=== PATIENT | male | born 1955 | race Caucasian/White ===

== ENCOUNTER → 2016-12-31 | Outpatient (CLI) | payer OTHER ==
[~2016-12-31] MED LIST: ASPI325T39 PO; CHOLCAP5 PO; CLOP1TAB15 PO; COEN400C5 PO; CYAN10005 PO; FENO160T PO; HMLNPUC SQ; INSU100I SQ; LEVO125T4 PO; LIDO1SOL9 PO; LISI-729 PO; METF-384 PO; METO25TA56 PO; NTRGSL/4 UT; PRED50TA PO; SIMV20TA2 PO
[2017-01-01 07:33] LABS: ESTIMATED AVERAGE GLUCOSE 157 mg/dl; HA1C FLAG Normal (Normal)
== END | disposition home or self-care (01) ==
LOC: C.LAB1850 14:19
PROVIDERS: ATTEND Internal Medicine Endocrinology, Diabetes & Metabolism
DX: E11.9 Type 2 diabetes mellitus without complications (principal)

== ENCOUNTER 2017-01-04 03:57 | Emergency (ER) | payer OTHER ==
[~2017-01-04] VITALS: Ht 177.8 cm; Wt 95.4 kg
[2017-01-04 04:02] VITALS: Ht 177.8 cm; Wt 95.4 kg
[2017-01-04] MEDS ORDERED: SODIUM CHLORIDE 0.9% 500ML 500 ML IV STA (04:12)
[2017-01-04] MEDS ORDERED: SODIUM CHLORIDE 0.9% 1000ML 1,000 ML IV STA (04:12)
[2017-01-04] MEDS ORDERED: DEXAMETHASONE SOD INJ 10 MG/ML VIAL IV ONE (04:15)
[2017-01-04 04:41] LABS: BASO % 0.2 %; BASO ABS # 0.02 K/uL (0-0.2); COMPLETE YES; EOS % 0.2 %; HEMATOCRIT 46.6 % (42-52); IG% 0.3 %; LYMPH % 7.6 %; LYMPH ABS # 0.93 K/uL (1.2-3.4); MEAN CELL VOLUME 91.7 fL (80-100); MEAN CORPUSCULAR HEMOGLOBIN 31.7 pg (25-34); MEAN CORPUSCULAR HGB CONC 34.5 g/dl (32-36); MEAN PLATELET VOLUME 10.1 fL (7.4-10.4); NEUT % 79.7 %; PLATELET COUNT 274 K/uL (130-400); RED BLOOD COUNT 5.08 M/uL (4.7-6.1); WHITE BLOOD COUNT 12.28 K/uL (4.8-10.8)
[2017-01-04 04:46] VITALS: O2SAT 92
[2017-01-04 04:58] LABS: BUN/CREATININE RATIO 14.4 (10-20); CALCIUM 9.1 mg/dl (8.5-10.1); CREATININE 1.2 mg/dl (0.60-1.40)
[2017-01-04] MEDS ORDERED: OPTIRAY 320 IV PRN (05:00)
[2017-01-04 05:01] LABS: PARTIAL THROMBOPLASTIN RATIO 1.1; PROTHROMBIN TIME (PATIENT) 11.1 SECONDS (9.0-12.0)
[2017-01-04] MEDS ORDERED: FENO160T PO (05:09)
[2017-01-04] MEDS ORDERED: COEN400C5 PO (05:10)
[2017-01-04] MEDS ORDERED: METO25TA56 PO (05:11)
[2017-01-04] MEDS ORDERED: LISI-729 PO (05:13)
[2017-01-04] MEDS ORDERED: ASPI325T39 PO (05:14)
[2017-01-04] MEDS ORDERED: CLOP1TAB15 PO (05:14)
[2017-01-04] MEDS ORDERED: LEVO125T4 PO (05:16)
[2017-01-04] MEDS ORDERED: METF-384 PO (05:17)
[2017-01-04] MEDS ORDERED: CYAN10005 PO (05:18)
[2017-01-04] MEDS ORDERED: CHOLCAP5 PO (05:20)
[2017-01-04] MEDS ORDERED: SIMV20TA2 PO (05:20)
[2017-01-04] MEDS ORDERED: HMLNPUC SQ ×2 (05:22→05:23)
[2017-01-04] MEDS ORDERED: INSU100I SQ (05:26)
[2017-01-04] MEDS ORDERED: NTRGSL/4 UT (05:28)
[2017-01-04] MEDS ORDERED: LIDOCAINE HCL 2% VISC SOLN 20 ML UDC MT STA (06:04)
--- NOTE | 2017-01-04 06:04 | EMERGENCY ROOM VISIT NOTE ---
History First contact with patient: 04:05 Chief Complaint: FLU LIKE SX Stated Complaint: HEADACHE,SORETHROAT,CHILLS,FEVER History of Present Illness The patient is a 61 year old male who presents to the Emergency Room with complaints of cough, congestion, severe sore throat, dysphagia, fever and chills with headache for the past few days that is steadily getting worse. No temperature was taken. Patient tried multiple iiuz-xpl-juxghzw cold medications with no improvement of symptoms. He has severe pain with swallowing. Patient denies neck stiffness, chest pain, dyspnea, abdominal pain , vomiting, diarrhea. Review of Systems See HPI for pertinent positives & negatives. A total of 10 systems reviewed and were otherwise negative. Past Medical/Surgical History Diabetes, coronary artery disease, stent, hyperlipidemia Social History Smoking Status: Never Smoker Current/Historical Medications Scheduled Aspirin (Aspirin Ec), 325 MG PO DAILY Cholecalciferol (Vitamin D3), 5,000 UNITS PO DAILY Clopidogrel (Plavix), 75 MG PO DAILY Coenzyme Q10 (Ubidecarenone) (Coq10), 400 MG PO DAILY Cyanocobalamin (Vitamin B-12), 2,500 MCG PO DAILY Fenofibrate (Tricor), 160 MG PO DAILY Insulin Human NPH (Humulin N), 60 UNITS SQ QAM Insulin Human NPH (Humulin N), 18 UNITS SQ QAFTERNOON Insulin Lispro (Human) (Humalog), SQ AC Levothyroxine Sodium (Levothyroxine Sodium), 125 MCG PO DAILY Lisinopril (Zestril), 5 MG PO DAILY Metformin Hcl (Glucophage), 1,000 MG PO BID Metoprolol Tartrate (Lopressor) (Lopressor), 25 MG PO BID Nitroglycerin (Nitrostat), 0.4 MG UT PRN Simvastatin (Zocor), 20 MG PO QPM Allergies Coded Allergies: No Known Allergies (Verified Allergy, Mild, 08/19/06) Physical Exam Vital Signs Date Time Temp Pulse Resp B/P Pulse Ox O2 Delivery O2 Flow Rate FiO2 01/04/17 05:27 90 20 165/88 91 Room Air 01/04/17 04:46 92 Room Air 01/04/17 04:02 37.7 101 20 148/88 93 Room Air Physical Exam VITALS: Vitals are noted on the nurse's note and reviewed by myself. Vital signs febrile. GENERAL: Pleasant male with a hoarse voice, in no acute distress, nondiaphoretic , well-developed well-nourished. SKIN: The skin was without rashes, erythema, edema, or bruising. There is no tenting of the skin. Capillary reflex less than 2 seconds. HEAD: Normocephalic atraumatic. EARS: External auditory canals clear, tympanic membranes pearly rankin without erythema or effusion bilaterally. EYES: Pupils equal round and reactive to light and accommodation. Conjunctivae without injection, sclerae without icterus. Extraocular movements intact. NOSE: Patent, turbinates without inflammation or discharge. No sinus tenderness. MOUTH: Mucous membranes moist. Tonsils are enlarged. Pharynx with erythema without exudate. Uvula midline. Airway patent. Tongue does not deviate. NECK: Supple without nuchal rigidity. No lymphadenopathy. No thyromegaly. Cervical spine is nontender. No JVD. No meningeal signs HEART: Regular rate and rhythm without murmurs gallops or rubs. LUNGS: Clear to auscultation bilaterally without wheezes, rales or rhonchi. No dullness to percussion. No retractions or accessory muscle use. ABDOMEN: Positive bowel sounds x 4. Normal tympanic percussion. Soft, nontender, without masses or organomegaly. Rogers sign negative. No guarding or rebound tenderness. MUSCULOSKELETAL: No muscle atrophy, erythema, or edema noted. NEURO: Patient was alert and oriented to person place and time. Normal sensation to light and sharp touch. No focal neurological deficits. Medical Decision & Procedures Laboratory Results 01/04/17 04:30 Red Blood Count 5.08, Mean Corpuscular Volume 91.7, Mean Corpuscular Hemoglobin 31.7, Mean Corpuscular Hemoglobin Concent 34.5, Mean Platelet Volume 10.1, Neutrophils (%) (Auto) 79.7, Lymphocytes (%) (Auto) 7.6, Monocytes (%) (Auto) 12.0, Eosinophils (%) (Auto) 0.2, Basophils (%) (Auto) 0.2, Neutrophils # (Auto ) 9.79, Lymphocytes # (Auto) 0.93, Monocytes # (Auto) 1.47, Eosinophils # (Auto ) 0.03, Basophils # (Auto) 0.02 01/04/17 04:30 Test 01/04/17 04:15 01/04/17 04:30 01/04/17 04:31 Influenza Type A Antigen Neg for Influ A (NEG) Influenza Type B Antigen Neg for Influ B (NEG) White Blood Count 12.28 K/uL (4.8-10.8) Red Blood Count 5.08 M/uL (4.7-6.1) Hemoglobin 16.1 g/dL (14.0-18.0) Hematocrit 46.6 % (42-52) Mean Corpuscular Volume 91.7 fL (80-100) Mean Corpuscular Hemoglobin 31.7 pg (25-34) Mean Corpuscular Hemoglobin Concent 34.5 g/dl (32-36) Platelet Count 274 K/uL (130-400) Mean Platelet Volume 10.1 fL (7.4-10.4) Neutrophils (%) (Auto) 79.7 % Lymphocytes (%) (Auto) 7.6 % Monocytes (%) (Auto) 12.0 % Eosinophils (%) (Auto) 0.2 % Basophils (%) (Auto) 0.2 % Neutrophils # (Auto) 9.79 K/uL (1.4-6.5) Lymphocytes # (Auto) 0.93 K/uL (1.2-3.4) Monocytes # (Auto) 1.47 K/uL (0.11-0.59) Eosinophils # (Auto) 0.03 K/uL (0-0.5) Basophils # (Auto) 0.02 K/uL (0-0.2) RDW Standard Deviation 46.5 fL (36.4-46.3) RDW Coefficient of Variation 13.8 % (11.5-14.5) Immature Granulocyte % (Auto) 0.3 % Immature Granulocyte # (Auto) 0.04 K/uL (0.00-0.02) Prothrombin Time 11.1 SECONDS (9.0-12.0) Prothromb Time International Ratio 1.0 (0.9-1.1) Activated Partial Thromboplast Time 27.3 SECONDS (21.0-31.0) Partial Thromboplastin Ratio 1.1 Anion Gap 11.0 mmol/L (3-11) Est Creatinine Clear Calc Drug Dose 74.0 ml/min Estimated GFR () 74.7 Estimated GFR (Non- 64.4 BUN/Creatinine Ratio 14.4 (10-20) Calcium Level 9.1 mg/dl (8.5-10.1) Total Bilirubin 0.4 mg/dl (0.2-1) Aspartate Amino Transf (AST/SGOT) 21 U/L (15-37) Alanine Aminotransferase (ALT/SGPT) 36 U/L (12-78) Alkaline Phosphatase 79 U/L (45-117) Total Protein 8.1 gm/dl (6.4-8.2) Albumin 4.1 gm/dl (3.4-5.0) Globulin 4.0 gm/dl (2.5-4.0) Albumin/Globulin Ratio 1.0 (0.9-2) Bedside Lactic Acid Venous 1.25 mmol/L (0.90-1.70) Medications Administered Medications (Trade) Dose Ordered Sig/Deborah Route Start Time Stop Time Status Last Admin Dose Admin Sodium Chloride (Nss 1000ml) 1,000 ml @ 125 mls/hr Q8H STAT IV 01/04/17 04:12 01/04/17 12:11 01/04/17 04:34 125 MLS/HR Dexamethasone Sodium Phosphate 10 mg 10 mg NOW ONCE IV 01/04/17 04:15 01/04/17 04:16 DC 01/04/17 04:42 10 MG Sodium Chloride (Nss 500ml) 500 ml @ 999 mls/hr Q31M STAT IV 01/04/17 04:12 01/04/17 04:42 DC 01/04/17 04:34 999 MLS/HR ED Course Prior records/ancillary studies reviewed. Triage Nursing notes reviewed. Additional history obtained from family. The patient's history was concerning for a sore throat. Differential diagnosis: Etiologies such as viral syndrome, epiglottitis, tonsillitis, streptococcal pharyngitis, mononucleosis, peritonsillar abscess, retropharyngeal abscess, otitis, pneumonia, influenza, as well as others were entertained. ER treatment provided: Decadron, IV fluids On reassessment the patient felt better. Diagnostics interpreted by me: The labs revealed mild leukocytosis. Negative lactic acid Imaging studies: Chest x-ray with no acute consolidation, pneumothorax or free air per my interpretation. Neck x-ray with no thumbprint sign or airway narrowing per my interpretation CT NECK: Evaluation is slightly limited by streak artifact from dental fillings. Prominence of oropharyngeal mucosa, suggesting possible pharyngitis. There is airway narrowing, but this could also be related to patient positioning during scanning, rather than true narrowing. Correlate with examination. No fluid collections. No abnormal mass lesions. Scattered lymph nodes measuring up to 1.1 cm in short axis at right level II and 1.0 cm in short axis at left level III. Sinuses and lung apices are clear. Multilevel degenerative changes of the spine. Radiologist: Deven Rodrigez MD This appears to be consistent with tonsillitis. Patient had negative strep test. He was started on steroids. No abscess or epiglottitis on CT imaging. He was advised to rest, stay well-hydrated and to take medicines as directed. He is advised follow-up family care in a few days or here in the ER sooner for high fevers, lethargy, neck stiffness, worsening signs or symptoms or as needed. Patient had no signs of meningitis or airway compromise. He is well- appearing. By the evaluation outlined above emergent etiologies such as peritonsillar abscess, retropharyngeal abscess, otitis, pneumonia, meningitis, urinary tract infection, sepsis, bacteremia, as well as others were deemed relatively unlikely. The pt informed about the findings as listed above. All questions were answered and pleased with the treatment. Return instructions were outlined and the patient was discharged in stable condition. Outpatient prescription management: Prednisone Referral: The patient was referred back to their primary care physician for follow-up in 2 to 3 days for a recheck of the current condition. Case reviewed with my attending. Medical Decision As above Impression Primary Impression: Acute tonsillitis Departure Information Dispostion Home / Self-Care Condition GOOD Referrals Clint Booth M.D. (PCP) Patient Instructions My [facility] Additional Instructions Prednisone 50 m tablet daily for the next 4 days. Start Saturday morning. Acetaminophen(Tylenol) may be used for fever or pain. Use 1000mg every six hours as needed. Avoid using more than 3000mg in a 24 hour period. (AND/OR) Ibuprofen(Motrin, Advil) may be used for fever or pain. Use 600mg every six hours as needed. Take with food. Avoid using more than 2400mg in a 24 hour period. Do not use 2400mg per day for more than three consecutive days without physician direction. Prolonged inappropriate use can lead to stomach upset or ulcers. Afrin nasal spray: 2-3 sprays to each nostril twice daily as needed for congestion. Do not use for more than 3-4 days because it can lead to worsening rebound congestion. Pseudoephedrine(Sudaphed): 30-60mg every 6 hours as needed for nasal congestion. Do not take this with other stimulant products or supplements. Rest and drink plenty of fluids. Controlling your fever with Tylenol and Ibuprofen as above will make you feel better. Wash your hands after nose blowing, sneezing, or coughing. Most germs are spread through contact, therefore improper hygiene may result in your close contacts and loved ones becoming ill just like you. Continue current medications. Return to the ER for severe headache, neck stiffness, chest pain, difficulty breathing, fevers, vomiting, worsening of your condition, or as needed. Follow up with your primary physician this week for a recheck of your current condition.
[2017-01-04] MEDS ORDERED: PRED50TA PO (06:06)
[2017-01-04] MEDS ORDERED: LIDO1SOL9 PO (06:14)
[2017-01-04 06:30] VITALS: BP 131/78; PULSE 93; TEMP 37.1; O2SAT 92
[2017-01-04 06:42] LABS: INFLUENZA A PCR Neg for Influ A (NEG); INFLUENZA B PCR Neg for Influ B (NEG)
--- NOTE | 2017-01-04 06:50 | DIAGNOSTIC IMAGING REPORT ---
SOFT TISSUE NECK TECHNIQUE: AP and lateral soft tissue neck FINDINGS: Normal prevertebral soft tissues. No distention of the hypopharynx. The epiglottis is normal. IMPRESSION: Normal study. Electronically signed by: Jonny Jaffe M.D. 01/04/2017 6:49 AM Dictated Date/Time: 01/04/2017 6:49 AM
--- NOTE | 2017-01-04 06:51 | DIAGNOSTIC IMAGING REPORT ---
CHEST 2 VIEWS ROUTINE CLINICAL HISTORY: cough/fever COMPARISON STUDY: No previous studies for comparison. FINDINGS: The bones soft tissues and hemidiaphragms are normal. The cardiomediastinal silhouette is normal. The lungs are clear. The pulmonary vasculature is normal. IMPRESSION: Negative chest. Electronically signed by: Jonny Jaffe M.D. 01/04/2017 6:49 AM Dictated Date/Time: 01/04/2017 6:49 AM
--- NOTE | 2017-01-04 06:52 | DIAGNOSTIC IMAGING REPORT ---
CT soft tissue neck SOFT TISSUE NECK WITH CLINICAL HISTORY: severe dysphagia with fever dysphagia TECHNIQUE: Transaxial acquisition with multi axial reformatted images COMPARISON STUDY: None FINDINGS: Mild cervical adenopathy bilaterally. Nodes measure up to 11 mm in the cervical chains bilaterally. Mild edematous change of the hypopharynx. Glottic and subglottic regions are unremarkable. Thyroid appears symmetric. IMPRESSION: 1. Mild/moderate hypopharyngeal edema. 2. Moderate cervical adenopathy bilaterally. Electronically signed by: Jonny Jaffe M.D. 01/04/2017 6:51 AM Dictated Date/Time: 01/04/2017 6:50 AM
== END 2017-01-04 06:30 | disposition home or self-care (01) ==
LOC: C.EDB 03:59 → C.EDA 06:30
DX: J03.90 Acute tonsillitis, unspecified (principal); E11.9 Type 2 diabetes mellitus without complications; I25.10 Atherosclerotic heart disease of native coronary artery without angina pectoris; E78.5 Hyperlipidemia, unspecified; Z95.5 Presence of coronary angioplasty implant and graft; Z79.82 Long term (current) use of aspirin; Z79.4 Long term (current) use of insulin

== ENCOUNTER → 2017-01-07 | Outpatient (CLI) | payer OTHER ==
[2017-01-07 18:23] LABS: ALT/SGPT 44 U/L (12-78); AST/SGOT 23 U/L (15-37); BLOOD UREA NITROGEN 23 mg/dl (7-18); BUN/CREATININE RATIO 21.2 (10-20); CALCIUM 9.2 mg/dl (8.5-10.1); CARBON DIOXIDE 28 mmol/L (21-32); CHLORIDE 100 mmol/L (98-107); GLUCOSE 256 mg/dl (70-99); POTASSIUM 3.9 mmol/L (3.5-5.1); SODIUM 136 mmol/L (136-145)
[2017-01-07 18:28] LABS: RATIO 27.2 mcg/mg (0-30.0)
[2017-01-07 18:39] LABS: ALKALINE PHOSPHATASE 79 U/L (45-117); CHOLESTEROL 148 mg/dl (0-200); CHOLESTEROL/HDL RATIO 3.3; HDL CHOLESTEROL 45 mg/dl; LDL CHOLESTEROL CALCULATED 75 mg/dl; THYROID STIMULATING HORMONE 0.519 uIu/ml (0.300-4.500); TRIGLYCERIDES 142 mg/dl (0-150); VERY LOW DENSITY LIPOPROT CALC 28 mg/dl
[2017-01-08 06:12] LABS: ESTIMATED AVERAGE GLUCOSE 163 mg/dl; HA1C FLAG Normal (Normal)
== END | disposition home or self-care (01) ==
LOC: C.LAB1850 16:33
PROVIDERS: ATTEND Internal Medicine
DX: I25.10 Atherosclerotic heart disease of native coronary artery without angina pectoris (principal); E55.9 Vitamin D deficiency, unspecified; E11.9 Type 2 diabetes mellitus without complications; Z79.84 Long term (current) use of oral hypoglycemic drugs

== ENCOUNTER → 2017-02-15 | Outpatient (CLI) | payer OTHER ==
[~2017-02-15] MED LIST changes: -LEVO125T4 PO; +LEVO125T5 PO; -PRED50TA PO
[2017-02-15 16:02] LABS: THYROID STIMULATING HORMONE 0.819 uIu/ml (0.300-4.500)
[2017-02-21 13:39] LABS: T4 FREE BY EQU DIAL 2.1 ng/dL (0.8-2.7)
== END | disposition home or self-care (01) ==
LOC: C.LAB1850 14:18
PROVIDERS: ATTEND Physician Assistant
DX: Z12.5 Encounter for screening for malignant neoplasm of prostate (principal); E03.9 Hypothyroidism, unspecified; E06.3 Autoimmune thyroiditis

== ENCOUNTER → 2017-04-08 | Outpatient (CLI) | payer OTHER ==
[2017-04-09 06:44] LABS: ESTIMATED AVERAGE GLUCOSE 171 mg/dl; HA1C FLAG Normal (Normal)
== END | disposition home or self-care (01) ==
LOC: C.LAB1850 15:14
PROVIDERS: ATTEND Internal Medicine Endocrinology, Diabetes & Metabolism
DX: E78.5 Hyperlipidemia, unspecified (principal); E11.9 Type 2 diabetes mellitus without complications

== ENCOUNTER → 2017-09-04 | Outpatient (CLI) | payer OTHER ==
[2017-09-04 09:51] LABS: ESTIMATED AVERAGE GLUCOSE 197 mg/dl; HA1C FLAG Normal (Normal)
== END | disposition home or self-care (01) ==
LOC: C.LAB1850 07:45
PROVIDERS: ATTEND Internal Medicine Endocrinology, Diabetes & Metabolism
DX: E11.9 Type 2 diabetes mellitus without complications (principal); E78.5 Hyperlipidemia, unspecified

== ENCOUNTER → 2017-09-23 | Outpatient (CLI) | payer OTHER ==
[2017-09-23 12:25] LABS: ALT/SGPT 39 U/L (12-78); BLOOD UREA NITROGEN 19 mg/dl (7-18); BUN/CREATININE RATIO 17.3 (10-20); CALCIUM 9.4 mg/dl (8.5-10.1); CARBON DIOXIDE 25 mmol/L (21-32); CHLORIDE 102 mmol/L (98-107); CREATININE 1.12 mg/dl (0.60-1.40); GLUCOSE 152 mg/dl (70-99); POTASSIUM 4.3 mmol/L (3.5-5.1); SODIUM 135 mmol/L (136-145)
[2017-09-23 12:28] LABS: ALKALINE PHOSPHATASE 72 U/L (45-117); AST/SGOT 28 U/L (15-37)
== END | disposition home or self-care (01) ==
LOC: C.LABBFT 09:19
PROVIDERS: ATTEND Internal Medicine
DX: E78.5 Hyperlipidemia, unspecified (principal)

== ENCOUNTER → 2018-05-26 | Day surgery (SDC) | payer BC, OTHER ==
[2018-05-14 08:21] VITALS: Ht 175.3 cm; Wt 97.7 kg
[~2018-05-26] VITALS: Ht 175.3 cm; Wt 97.7 kg
[~2018-05-26] MED LIST changes: +ATOR-24 PO; +CHOL20007 PO; -CHOLCAP5 PO; +HMLI7525 SC; +INSU100I SC; -INSU100I SQ; -LIDO1SOL9 PO; +LIDOCAINE HCL 2% 2 ML VIAL (20MG/ML) ONE; +MISCCAP80 PEG; +MISCCAP80 PO; +PROPOFOL IV EMULSION 10 MG/ML 20 ML VIAL ONE; +SENNTAB23 PO; -SIMV20TA2 PO; +SODIUM CHLORIDE 0.9% 500ML 500 ML IV ONE
--- NOTE | 2018-05-26 08:31 | Endo History and Physical ---
History & Physical Date of Service: May 26, 2018. Chief Complaint: Screening Referring Physician: Clint Booth History of Present Illness 62 yo CM who presents for screening colonoscopy. Past Surgical History Hx Cardiac Surgery: Yes (CARDIAC CATH 1 STENT) Hx Internal Defibrillator: No Hx Pacemaker: No Hx Abdominal Surgery: No Hx of Implantable Prosthesis: No Hx Post-Op Nausea and Vomiting: No Hx Cancer Surgery: No Hx Thoracic Surgery: No Hx Orthopedic: No Hx Urinary Tract Surgery: No Family History None Social History Smoking Status: Never Smoker Hx Substance Use: No Hx Alcohol Use: Yes (OCC BEER 1 A WEEK) Allergies Coded Allergies: No Known Allergies (Verified , 05/14/18) Current Medications Reported Home Medications Medications Dose Route/Sig Max Daily Dose Days Date Category Dose Instructions Humalog Mix 75/25 (Insulin Human Lispro) 100 Units/ Inj 30 SC QPM 05/14/18 Reported Lipitor (Atorvastatin Calcium) 40 Mg Tab 40 Mg PO HS 05/14/18 Reported Stool Softener (Sennosides-Docusate Sodium) 1 Tab Tab 2 Tab PO DAILY 05/14/18 Reported Vitamin D3 (Cholecalciferol) 2,000 Unit Tab 1 Tab PO DAILY 90 05/14/18 Reported Nitrostat (Nitroglycerin) 0.4 Mg Tab 0.4 Mg UT PRN 01/04/17 Reported NEEDED FOR CHEST PAIN, ONE TABLET UNDER THE TONGUE EVERY 5 MINUTES, UP TO 3 DOSES. Humalog (Insulin Lispro (Human)) 100 Unit/Ml Inj 12-15 Units SC NOON 01/04/17 Reported PER SLIDING SCALE WITH LUNCH Humulin N (Insulin Human NPH) 1,000 Units/10 Ml Inj 60 Units SQ QAM 01/04/17 Reported Vitamin B-12 (Cyanocobalamin) 1,000 Mcg Tab 5,000 Mcg PO DAILY 01/04/17 Reported Glucophage (Metformin Hcl) 1,000 Mg Tab 1,000 Mg PO BID 01/04/17 Reported Levothyroxine Sodium 125 Mcg Tab 125 Mcg PO QAM 01/04/17 Reported 6X A WEEK Plavix (Clopidogrel Bisulfate) 75 Mg Tab 75 Mg PO DAILY 01/04/17 Reported PT WILL CHECK WITH PCP Aspirin Ec (Aspirin) 325 Mg Tab 325 Mg PO QAM 01/04/17 Reported PT WILL CHECK WITH PCP Zestril (Lisinopril) 5 Mg Tab 5 Mg PO DAILY 01/04/17 Reported Lopressor (Metoprolol Tartrate) 25 Mg Tab 25 Mg PO BID 01/04/17 Reported Coq10 (Coenzyme Q10 (Ubidecarenone)) 400 Mg Cap 400 Mg PO DAILY 01/04/17 Reported TAKE DAILY WITH A MEAL. Tricor (Fenofibrate) 160 Mg Tab 160 Mg PO DAILY 01/04/17 Reported Probiotic (Probiotic Product) 1 Cap Cap 1 Cap PO DAILY 05/26/18 Reported Vital Signs Weight (Kilograms): 97.73 Height (Feet): 5 Height (Inches): 9 Physical Exam General Appearance: WD/WN, no apparent distress Respiratory/Chest: Auscultation: breath sounds normal Cardiovascular: Heart Auscultation: RRR Abdomen: Bowel Sounds: normal Inspection & Palpation: soft, non-distended, no tenderness, guarding & rebound Assessment and Plan Assessment: 62 yo CM who presents for screening colonoscopy. Plan: Proceed with colonoscopy.
--- NOTE | 2018-05-26 08:59 | Discharge Instructions ---
Endoscopy Patient Instructions Date / Procedure(s) Performed May 26, 2018. Colonoscopy Allergy Information Coded Allergies: No Known Allergies (Verified , 05/14/18) Discharge Date / Findings May 26, 2018. Colon polyps Diverticulosis Internal hemorrhoids Medication Instructions Stopped Medication(s): Plavix, ASA OK to resume all medications today as prescribed Reported Home Medications Medications Dose Route/Sig Max Daily Dose Days Date Category Dose Instructions Humalog Mix 75/25 (Insulin Human Lispro) 100 Units/ Inj 30 SC QPM 05/14/18 Reported Lipitor (Atorvastatin Calcium) 40 Mg Tab 40 Mg PO HS 05/14/18 Reported Stool Softener (Sennosides-Docusate Sodium) 1 Tab Tab 2 Tab PO DAILY 05/14/18 Reported Vitamin D3 (Cholecalciferol) 2,000 Unit Tab 1 Tab PO DAILY 90 05/14/18 Reported Nitrostat (Nitroglycerin) 0.4 Mg Tab 0.4 Mg UT PRN 01/04/17 Reported NEEDED FOR CHEST PAIN, ONE TABLET UNDER THE TONGUE EVERY 5 MINUTES, UP TO 3 DOSES. Humalog (Insulin Lispro (Human)) 100 Unit/Ml Inj 12-15 Units SC NOON 01/04/17 Reported PER SLIDING SCALE WITH LUNCH Humulin N (Insulin Human NPH) 1,000 Units/10 Ml Inj 60 Units SQ QAM 01/04/17 Reported Vitamin B-12 (Cyanocobalamin) 1,000 Mcg Tab 5,000 Mcg PO DAILY 01/04/17 Reported Glucophage (Metformin Hcl) 1,000 Mg Tab 1,000 Mg PO BID 01/04/17 Reported Levothyroxine Sodium 125 Mcg Tab 125 Mcg PO QAM 01/04/17 Reported 6X A WEEK Plavix (Clopidogrel Bisulfate) 75 Mg Tab 75 Mg PO DAILY 01/04/17 Reported PT WILL CHECK WITH PCP Aspirin Ec (Aspirin) 325 Mg Tab 325 Mg PO QAM 01/04/17 Reported PT WILL CHECK WITH PCP Zestril (Lisinopril) 5 Mg Tab 5 Mg PO DAILY 01/04/17 Reported Lopressor (Metoprolol Tartrate) 25 Mg Tab 25 Mg PO BID 01/04/17 Reported Coq10 (Coenzyme Q10 (Ubidecarenone)) 400 Mg Cap 400 Mg PO DAILY 01/04/17 Reported TAKE DAILY WITH A MEAL. Tricor (Fenofibrate) 160 Mg Tab 160 Mg PO DAILY 01/04/17 Reported Probiotic (Probiotic Product) 1 Cap Cap 1 Cap PO DAILY 05/26/18 Reported Provider Instructions Activity Restrictions - No exercising or heavy lifting for 24 hours. - Do not drink alcohol the day of the procedure. - Do not drive a car or operate machinery until the day after the procedure. - Do not make any important decisions or sign important papers in 24 hours after the procedure. Following Day: - Return to full activity which may include returning to work/school. Diet Start your diet with liquids and light foods (jello, soup, juice, toast). Then eat your usual diet if not nauseated. Treatment For Common After Affects For mild abdominal pain, bloating, or excessive gas: - Rest - Eat lightly - Lie on right side Follow-Up Information Follow-up with Clint Booth as scheduled Anesthesia Information What You Should Know You have had a procedure that required some medicine to reduce anxiety and discomfort. This treatment is called moderate sedation. After receiving the treatment, you may be sleepy, but you will be able to breathe on your own. The effects of the treatment may last for several hours. Follow these instructions along with Activity/Diet recommendations noted above: * Do NOT do anything where dizziness or clumsiness would be dangerous. * Rest quietly at home today, then you can be up and about tomorrow. * Have a responsible person stay with you the rest of today. * You may have had an I.V. today. If so, you may take the dressing off later today. Recommendations Call your doctor if: * Trouble breathing * Continuous vomiting for more than 24 hours * Temperature above 101 degrees * Severe abdominal pain or bloating * Pain not relieved by pain medicine ordered * There is increased drainage or redness from any incision * A large amount of rectal bleeding greater than 2-3 tablespoons. (If you had a polyp/s removed or have hemorrhoids, a small amount of blood - from the rectum is to be expected.) * You have any unanswered questions or concerns. IN THE EVENT OF A SERIOUS EMERGENCY, GO TO THE NEAREST EMERGENCY ROOM Your discharge instructions were prepared by provider Gautam Vasquez. Patient Instructions Signature Page Aldo Madrid Patient (or Guardian) Signature/Date: I have read and understand the instructions given to me by my caregivers. Caregiver/RN/Doctor Signature/Date: The above-named patient and/or guardian has received patient instructions on this date. + Original Patient Signature Page (only) stays with chart. Please make copy for patient.
--- NOTE | 2018-05-26 09:13 | GI REPORT ---
Patient Name: Aldo Madrid Procedure Date: 05/26/2018 8:26 AM Date of : 1955 Admit Type: Outpatient Age: 62 Gender: Male Attending MD: Gautam Vasquez DO Procedure: Colonoscopy Providers: Gautam Vasquez DO Referring MD: Clint Booth Indications: Screening for colorectal malignant neoplasm Medicines: Monitored Anesthesia Care Complications: No immediate complications. Estimated Blood Loss: Estimated blood loss: none. Procedure: Pre-Anesthesia Assessment: - Prior to the procedure, a History and Physical was performed, and patient medications and allergies were reviewed. The patient's tolerance of previous anesthesia was also reviewed. The risks and benefits of the procedure and the sedation options and risks were discussed with the patient. All questions were answered, and informed consent was obtained. Prior Anticoagulants: The patient last took aspirin 4 days and Plavix (clopidogrel) 5 days prior to the procedure. ASA Grade Assessment: III - A patient with severe systemic disease. After reviewing the risks and benefits, the patient was deemed in satisfactory condition to undergo the procedure. After I obtained informed consent, the scope was passed under direct vision. Throughout the procedure, the patient's blood pressure, pulse, and oxygen saturations were monitored continuously. The scope was introduced through the anus and advanced to the terminal ileum. The colonoscopy was performed without difficulty. The patient tolerated the procedure well. The quality of the bowel preparation was good. The terminal ileum, ileocecal valve, appendiceal orifice, and rectum were photographed. Findings: The perianal and digital rectal examinations were normal. A 5 mm polyp was found in the ascending colon. The polyp was sessile. The polyp was removed with a hot snare. Resection and retrieval were complete. Two sessile polyps were found in the transverse colon. The polyps were 3 to 4 mm in size. These polyps were removed with a cold snare. Resection and retrieval were complete. Multiple small-mouthed diverticula were found in the sigmoid colon. Non-bleeding internal hemorrhoids were found during retroflexion. The hemorrhoids were small. Impression: - One 5 mm polyp in the ascending colon, removed with a hot snare. Resected and retrieved. - Two 3 to 4 mm polyps in the transverse colon, removed with a cold snare. Resected and retrieved. - Diverticulosis in the sigmoid colon. - Non-bleeding internal hemorrhoids. Recommendation: - Resume previous diet. - Continue present medications. - Repeat colonoscopy for surveillance based on pathology results. - Return to primary care physician as previously scheduled. Gautam Vasquez, DO 05/26/2018 9:12:59 AM This report has been signed electronically. Note Initiated On: 05/26/2018 8:26 AM Number of Addenda: 0 I attest to the content of the Intraoperative Record and orders documented therein, exceptions below {[id number]}
[2018-05-26 09:33] VITALS: BP 115/77; PULSE 69; O2SAT 93
--- NOTE | 2018-05-26 11:22 | Anesthesiology Progress Note ---
Anesthesia Post Op Note Date & Time May 26, 2018 at 11:21 Vital Signs Pain Intensity: 0 Vital Signs Past 12 Hours Date Time Temp Pulse Resp B/P (MAP) Pulse Ox O2 Delivery O2 Flow Rate FiO2 05/26/18 09:33 69 18 115/77 (90) 93 Room Air 05/26/18 09:18 65 18 122/78 (93) 93 Room Air 05/26/18 09:03 71 18 104/69 (81) 96 Room Air 05/26/18 08:28 36.7 70 20 145/87 (106) 95 Room Air Notes Mental Status: alert / awake / arousable, participated in evaluation Pt Amnestic to Procedure: Yes Nausea / Vomiting: adequately controlled Pain: adequately controlled Airway Patency, RR, SpO2: stable & adequate BP & HR: stable & adequate Hydration State: stable & adequate Anesthetic Complications: no major complications apparent
== END | disposition home or self-care (01) ==
LOC: C.GI 07:57
PROVIDERS: ATTEND Internal Medicine
DX: Z12.11 Encounter for screening for malignant neoplasm of colon (principal); D12.2 Benign neoplasm of ascending colon; D12.3 Benign neoplasm of transverse colon; K57.30 Diverticulosis of large intestine without perforation or abscess without bleeding; K64.8 Other hemorrhoids; I10 Essential (primary) hypertension; I25.2 Old myocardial infarction; E78.5 Hyperlipidemia, unspecified; E11.9 Type 2 diabetes mellitus without complications; Z79.4 Long term (current) use of insulin; Z79.82 Long term (current) use of aspirin; Z79.02 Long term (current) use of antithrombotics/antiplatelets